=== PATIENT | female | born 1990 | race African-American/Black ===

== ENCOUNTER 2020-10-18 23:58 | Emergency (ER) | payer OTHER ==
[~2020-10-18] VITALS: Ht 170.2 cm; Wt 59.1 kg
[2020-10-19] MEDS ORDERED: TOPI50TA9 (00:29)
[2020-10-19] MEDS ORDERED: MIRTAZAPINE (00:29)
[2020-10-19] MEDS ORDERED: ALBU8.5H (00:29)
[2020-10-19] MEDS ORDERED: IBUPROFEN 800 MG TAB PO ONE (01:50)
[2020-10-19 02:00] VITALS: BP 106/67
[2020-10-19] MEDS ORDERED: IBUP-1022 PO (02:00)
--- NOTE | 2020-10-19 05:34 | REPVR ---
PROCEDURE INFORMATION: Exam: XR Left Ankle Exam date and time: 10/19/2020 2:45 AM Age: 30 years old Clinical indication: Other: Left ankle pain TECHNIQUE: Imaging protocol: XR Left ankle. Views: 1 or 2 views. COMPARISON: No relevant prior studies available. FINDINGS: Bones/joints: Normal. Soft tissues: Normal. IMPRESSION: No acute findings. Electronically signed by: Valentin Quezada On 10/19/2020 05:34:05 AM
== END 2020-10-19 03:04 | disposition home or self-care (01) ==
LOC: M ED 23:58
DX: S93.402A Sprain of unspecified ligament of left ankle, initial encounter (principal); V40.0XXA Car driver injured in collision with pedestrian or animal in nontraffic accident, initial encounter; F33.9 Major depressive disorder, recurrent, unspecified; F41.9 Anxiety disorder, unspecified; Z79.899 Other long term (current) drug therapy

== ENCOUNTER → 2021-06-25 | Outpatient (REF) ==
[~2021-06-25] MED LIST: ALBU8.5H; IBUP-1022 PO; MIRTAZAPINE; TOPI50TA9
== END ==
LOC: M LAB 14:21
PROVIDERS: ATTEND Nurse Practitioner Adult Health
DX: Z02.89 Encounter for other administrative examinations (principal)

== ENCOUNTER → 2021-07-18 | Outpatient (REF) | LOC: M LABSMTC 10:23 | PROVIDERS: ATTEND Family Medicine | DX: Z20.822 Contact with and (suspected) exposure to COVID-19 (principal) ==

== ENCOUNTER → 2021-08-19 | Outpatient (REF) | LOC: M EMP 08:04 | PROVIDERS: ATTEND Family Medicine | DX: Z11.52 Encounter for screening for COVID-19 (principal) ==

== ENCOUNTER → 2022-01-16 | Outpatient (CLI) | payer OTHER | LOC: M SOG 08:13 | PROVIDERS: ATTEND Physician Assistant | DX: M25.531 Pain in right wrist (principal) ==

== ENCOUNTER 2022-01-21 18:31 | Emergency (ER) | payer OTHER ==
[~2022-01-21] VITALS: Ht 170.2 cm; Wt 61.6 kg
[2022-01-21 18:37] VITALS: BP 105/70
== END 2022-01-21 20:48 | disposition home or self-care (01) ==
LOC: EDBD 18:31 → M ED 18:31
DX: S63.521A Sprain of radiocarpal joint of right wrist, initial encounter (principal); W01.0XXA Fall on same level from slipping, tripping and stumbling without subsequent striking against object, initial encounter; F17.200 Nicotine dependence, unspecified, uncomplicated; F12.10 Cannabis abuse, uncomplicated; F10.10 Alcohol abuse, uncomplicated; Z88.8 Allergy status to other drugs, medicaments and biological substances; Y92.9 Unspecified place or not applicable; Y93.9 Activity, unspecified; Y99.0 Civilian activity done for income or pay

== ENCOUNTER → 2022-02-17 | Outpatient (REF) | payer OTHER ==
[2022-02-17 18:33] LABS: HEPATITIS C VIRUS ABY INDEX 0.1 INDEX (<0.8)
[2022-02-17 20:06] LABS: GC DNA AMPLIFICATION NEGATIVE (NEGATIVE)
== END ==
LOC: M LAB REF 16:16
PROVIDERS: ATTEND Physician Assistant
DX: Z12.4 Encounter for screening for malignant neoplasm of cervix (principal); Z11.3 Encounter for screening for infections with a predominantly sexual mode of transmission; Z11.59 Encounter for screening for other viral diseases; N76.0 Acute vaginitis

== ENCOUNTER → 2022-07-06 | Outpatient (CLI) | payer OTHER ==
[~2022-07-06] MED LIST changes: +TOPI-254; -TOPI50TA9
== END ==
LOC: M WHC 12:57
PROVIDERS: ATTEND Physician Assistant
DX: N63.12 Unspecified lump in the right breast, upper inner quadrant (principal); N64.4 Mastodynia; Z97.8 Presence of other specified devices

== ENCOUNTER → 2022-08-02 | Outpatient (REF) | payer OTHER | LOC: M LAB REF 12:57 | PROVIDERS: ATTEND Physician Assistant Medical | DX: B34.9 Viral infection, unspecified (principal) ==

== ENCOUNTER → 2023-02-25 | Outpatient (REF) | payer OTHER | LOC: M LAB REF 16:30 | PROVIDERS: ATTEND Nurse Practitioner Family | DX: Z12.4 Encounter for screening for malignant neoplasm of cervix (principal) ==

== ENCOUNTER 2024-06-07 21:32 | Emergency (ER) | payer OTHER ==
[~2024-06-07] VITALS: Ht 170.2 cm; Wt 68.2 kg
[~2024-06-07 21:32] MED LIST changes: +TOPI-21; -TOPI-254
[2024-06-07] MEDS: predniSONE 20 MG TAB PO ONE (23:27)
[2024-06-07] MEDS: KETOROLAC 60MG 2ML VIAL IM ONE (23:28)
[2024-06-08] MEDS ORDERED: MEDR4PAK PO (00:10)
[2024-06-08] MEDS ORDERED: LIDO5DIS41 TD (00:10)
[2024-06-08] MEDS: LIDOCAINE 5% (LIDODERM) PATCH TD ONE (00:21)
[2024-06-08 00:32] VITALS: BP 109/73; TEMP 96.9; O2SAT 99
== END 2024-06-08 00:31 | disposition home or self-care (01) ==
LOC: M ED 21:32
DX: S30.0XXA Contusion of lower back and pelvis, initial encounter (principal); M62.830 Muscle spasm of back; W19.XXXA Unspecified fall, initial encounter; Z79.52 Long term (current) use of systemic steroids; Z79.899 Other long term (current) drug therapy; Y92.9 Unspecified place or not applicable; Y93.F9 Activity, other caregiving; Y99.0 Civilian activity done for income or pay; Z88.8 Allergy status to other drugs, medicaments and biological substances
CPT/HCPCS: 72110; 96372; 99284; J1885; J7512

== ENCOUNTER → 2024-07-19 | Outpatient (REF) ==
[~2024-07-19] MED LIST changes: +LIDO5DIS41 TD; +MEDR4PAK PO
== END ==
LOC: M EMP 08:35
PROVIDERS: ATTEND Family Medicine
DX: Z11.52 Encounter for screening for COVID-19 (principal); Z20.822 Contact with and (suspected) exposure to COVID-19